=== PATIENT | male | born 1970 | race Caucasian/White ===

== ENCOUNTER 2021-07-13 23:05 | Emergency (ER) | payer OTHER ==
[~2021-07-13] VITALS: Ht 188 cm; Wt 123.8 kg
[2021-07-13] MEDS ORDERED: ATORVASTATIN CA20 MG PO (23:17)
[2021-07-13] MEDS ORDERED: OMEPRAZOLE40 MG PO (23:17)
[2021-07-14] MEDS ORDERED: NORCO5 PO (01:16)
[2021-07-14 01:27] VITALS: BP 145/87
== END 2021-07-14 01:28 | disposition home or self-care (01) ==
LOC: ER 23:05
DX: S42.121A Displaced fracture of acromial process, right shoulder, initial encounter for closed fracture (principal); S00.81XA Abrasion of other part of head, initial encounter; S60.512A Abrasion of left hand, initial encounter; S60.511A Abrasion of right hand, initial encounter; S80.212A Abrasion, left knee, initial encounter; S80.211A Abrasion, right knee, initial encounter; Z79.899 Other long term (current) drug therapy; Z90.89 Acquired absence of other organs; Y04.0XXA Assault by unarmed brawl or fight, initial encounter; Y93.89 Activity, other specified; Y92.89 Other specified places as the place of occurrence of the external cause; Y99.9 Unspecified external cause status